=== PATIENT | male | born 1975 | race Caucasian/White ===

== ENCOUNTER 2023-04-29 15:59 | Outpatient (CLI) | payer BC, SELFPAY ==
--- NOTE | 2023-04-29 16:13 | MR_ITS ---
WS: [id number] MRI LEFT SHOULDER HISTORY: LEFT SHOULDER PAIN COMPARISON: None available. TECHNIQUE: Multiplanar sequences of the shoulder joint are submitted. Mild AC joint arthritis encroaching upon the supraspinatus myotendinous insertion. There is a small a mount of edema and fluid surrounding the AC joint. There is a small amount of edema in the subacromia l subdeltoid bursa. Mild subacromial impingement. Normal position of the biceps tendon. Small amount of increased fluid in the biceps tendon sheath but no tendon tear identified. No os acromion. Focal marrow edema in the superior posterior humeral head. There is a cortical defect along the super ior posterior humeral head with the marrow edema being deep to the cortical defect. No marrow edema i n the glenoid. No muscle atrophy. There is increased T2 signal in the supraspinatus tendon beginning at the level of the distal acromion. No definite tear is identified. Increased T2 signal within the interstitial por tion of the tendon at the level of the distal acromion. No tendon tear or retraction. There is fluid signal extending along the superficial supraspinatus muscle. No labral tear. IMPRESSION: 1. Focal marrow edema in the superior posterior lateral humeral head with an osteochondral defect. Th is may be a contusion type injury with a cortical fracture. If there is history of shoulder dislocati on this may be a Hill-Sachs deformity. There is no signal abnormality within the glenoid or labral te ar identified. 2. Increased T2 signal in the supraspinatus tendon. There is also thickening of the tendon and fluid extending along the superficial body of the supraspinatus muscle. These changes are probably all due to the prior trauma with contusion injury. There is no full-thickness tendon tear. A tiny interstitia l tear at the level of the distal acromion may be present. 3. Mild AC joint arthritis.
== END 2023-04-29 16:00 | disposition home or self-care (01) ==
PROVIDERS: Family Provider Physician Assistant; PCP Family Medicine; Visit Provider Nurse Practitioner
DX: M62.81 Muscle weakness (generalized) (principal); M21.922 Unspecified acquired deformity of left upper arm; M19.012 Primary osteoarthritis, left shoulder; M67.912 Unspecified disorder of synovium and tendon, left shoulder; R20.2 Paresthesia of skin; V40.5XXA Car driver injured in collision with pedestrian or animal in traffic accident, initial encounter
CPT/HCPCS: 73221